=== PATIENT | female | born 1965 | race Caucasian/White ===

== ENCOUNTER → 2018-02-05 | Emergency (ER) | payer OTHER ==
[~2018-02-05] VITALS: Ht 162.6 cm; Wt 90.7 kg
== END | disposition home or self-care (01) ==
LOC: ER 17:58
DX: M54.2 Cervicalgia (principal); M62.830 Muscle spasm of back; M75.52 Bursitis of left shoulder

== ENCOUNTER 2019-01-14 00:22 | Emergency (ER) | payer OTHER ==
[~2019-01-14] VITALS: Ht 162.6 cm; Wt 89.8 kg
[2019-01-14] MEDS ORDERED: ALBUTEROL2.5 MG/3 M IH (07:15)
[2019-01-14] MEDS ORDERED: ZYNCOF 20-400120 ML PO (07:15)
[2019-01-14] MEDS ORDERED: MEDROL8 MG PO (07:18)
== END 2019-01-14 07:55 | disposition home or self-care (01) ==
LOC: ER 00:22
DX: J40 Bronchitis, not specified as acute or chronic (principal)

== ENCOUNTER → 2019-08-10 | Emergency (ER) | payer OTHER ==
[~2019-08-10] VITALS: Ht 162.6 cm; Wt 90.3 kg
[~2019-08-10] MED LIST: ALBUTEROL2.5 MG/3 M IH; MEDROL8 MG PO; SINGULAIR10 MG; XARELTO15 MG; ZYNCOF 20-400120 ML PO; ZYRTEC10 MG PO
== END | disposition home or self-care (01) ==
LOC: ER 22:50
DX: L29.8 Other pruritus (principal)

== ENCOUNTER 2019-12-31 20:32 | Emergency (ER) | payer OTHER ==
[~2019-12-31] VITALS: Ht 162.6 cm; Wt 90.7 kg
[2019-12-31] MEDS ORDERED: XARELTO20 MG PO (20:39)
== END 2019-12-31 23:23 | disposition home or self-care (01) ==
LOC: ER 20:32
DX: K52.89 Other specified noninfective gastroenteritis and colitis (principal)

== ENCOUNTER → 2020-08-29 08:40 | Outpatient (CLI) | payer OTHER ==
[~2020-08-29 08:40] MED LIST changes: +XARELTO20 MG PO
== END | disposition home or self-care (01) ==
LOC: LAB 08:40
PROVIDERS: ATTEND Orthopaedic Surgery Orthopaedic Surgery of the Spine
DX: D68.8 Other specified coagulation defects (principal); D64.89 Other specified anemias; E03.8 Other specified hypothyroidism; Z86.2 Personal history of diseases of the blood and blood-forming organs and certain disorders involving the immune mechanism

== ENCOUNTER 2020-08-29 10:01 | Outpatient (CLI) | payer OTHER | END 2020-08-29 10:16 | disposition home or self-care (01) | LOC: NUCLEAR 10:01 | PROVIDERS: ATTEND Internal Medicine Hematology & Oncology | DX: I87.2 Venous insufficiency (chronic) (peripheral) (principal); Z79.01 Long term (current) use of anticoagulants; Z86.2 Personal history of diseases of the blood and blood-forming organs and certain disorders involving the immune mechanism ==

== ENCOUNTER 2020-08-29 11:34 | Outpatient (CLI) | payer OTHER | END 2020-08-29 11:43 | disposition home or self-care (01) | LOC: RAD 11:34 | PROVIDERS: ATTEND Orthopaedic Surgery Orthopaedic Surgery of the Spine | DX: R07.89 Other chest pain (principal) ==

== ENCOUNTER → 2022-12-03 | Outpatient (CLI) | payer OTHER | END | disposition home or self-care (01) | LOC: RAD 11:50 | PROVIDERS: ATTEND Colon & Rectal Surgery | DX: K59.09 Other constipation (principal) ==

== ENCOUNTER 2022-12-05 12:28 | Emergency (ER) | payer OTHER ==
[~2022-12-05] VITALS: Ht 162.6 cm; Wt 79.4 kg
[2022-12-05] MEDS ORDERED: FOSAMAX70 MG PO (12:47)
[2022-12-05] MEDS ORDERED: MOUNJARO5 MG/0.5 M SQ (12:47)
[2022-12-05] MEDS ORDERED: XARELTO10 MG (12:48)
== END 2022-12-05 17:20 | disposition home or self-care (01) ==
LOC: ER 12:28
DX: R10.32 Left lower quadrant pain (principal); K59.00 Constipation, unspecified; K57.30 Diverticulosis of large intestine without perforation or abscess without bleeding

== ENCOUNTER → 2023-01-10 | Emergency (ER) | payer OTHER ==
[~2023-01-10] VITALS: Ht 165.1 cm; Wt 77.1 kg
[~2023-01-10] MED LIST changes: +FOSAMAX70 MG PO; +LEVSIN/SL0.125 MG SL; +MOUNJARO5 MG/0.5 M SQ; +PEPCID AC20 MG PO; +XARELTO10 MG
== END | disposition home or self-care (01) ==
LOC: ER 14:16
DX: K63.89 Other specified diseases of intestine (principal); I10 Essential (primary) hypertension; K76.0 Fatty (change of) liver, not elsewhere classified; Z88.6 Allergy status to analgesic agent

== ENCOUNTER 2023-11-27 13:00 | Inpatient (IN) | payer OTHER ==
[~2023-11-27] VITALS: Ht 160 cm; Wt 81.6 kg
[2023-11-27 15:27] LABS: HEMATOCRIT 43.7 % (36.0-45.00); HEMOGLOBIN 14.8 g/dL (12.0-15.00); MEAN CELL VOLUME 88.1 fL (80.00-100.00); MEAN CORPUSCULAR HEMOGLOBIN 29.7 pg (27.00-32.0); MEAN CORPUSCULAR HGB CONC 33.7 g/dl (32.0-36.0); PLATELET COUNT 213 K/uL (150-450); RED BLOOD COUNT 4.97 M/uL (4.00-6.00); RED CELL DISTRIBUTION WIDTH 14.2 % (11.5-14.5)
[2023-11-27 15:42] LABS: PARTIAL THROMBOPLASTIN TIME 37.4 SECONDS (22.0-34.0)
[2023-11-27 15:44] LABS: CALCIUM 9.7 mg/dL (8.5-10.1); CREATININE SERUM 0.66 mg/dL (0.55-1.02); GFR 92.31; POTASSIUM 3.84 mEq/L (3.5-5.1)
[2023-11-27 15:54] LABS: D DIMER < 0.19 MG/L
[2023-11-27 16:12] LABS: PH,URINE 7.5 (5.0-8.0); URINE APPEARANCE Clear; URINE BILIRRUBIN Negative (NEGATIVE); URINE BLOOD Negative; URINE COLOR Yellow; URINE GLUCOSE Negative (NEGATIVE); URINE LEUKOCYTE Negative; URINE NITRATE Negative; URINE PROTEIN Negative (NEGATIVE); URINE UROBILINOGEN 0.2 E.U./dl
[2023-11-27 16:15] LABS: URINE BACTERIA 23.8 uL (0.0-1933); URINE EPITHELIAL CELLS 4.4 uL (0.0-38.8); URINE WBC 2.9 uL (0.0-23.2)
[2023-11-27 16:17] LABS: URINE RBC 0.5 uL (0.0-20.8)
[2023-11-27 19:14] LABS: INR 1.14; PROTHROMBIN TIME 11.9 SECONDS (9.0-11.5)
[2023-11-28 02:23] LABS: FIBRINOGEN 357 mg/dL (187.0-446.0)
[2023-11-28 02:29] LABS: PHOSPHOKINASE CREATININE 91 U/L (26-192)
[2023-11-28 02:44] LABS: D DIMER < 0.19 MG/L
[2023-11-28 02:58] LABS: CKMB < 1.0 NG/ML (0.5-3.6)
[2023-11-28 06:10] LABS: HEMOGLOBIN 13.6 g/dL (12.0-15.00); MEAN CELL VOLUME 88.4 fL (80.00-100.00); MEAN CORPUSCULAR HEMOGLOBIN 29.3 pg (27.00-32.0); MEAN CORPUSCULAR HGB CONC 33.2 g/dl (32.0-36.0); PLATELET COUNT 192 K/uL (150-450); RED BLOOD COUNT 4.65 M/uL (4.00-6.00)
[2023-11-28 06:52] LABS: ALBUMIN 3.5 gm/dL (3.4-5.0); BILIRUBIN TOTAL 0.96 mg/dL (0.3-1.2); CREATININE SERUM 0.62 mg/dL (0.55-1.02); GFR 99.21; GLOBULINA 2.8 G/DL (2.4-3.5); PHOSPHOKINASE CREATININE 93 U/L (26-192); PHOSPHOROUS 3.6 mg/dL (2.5-4.9); POTASSIUM 3.42 mEq/L (3.5-5.1); TOTAL PROTEIN 6.3 gm/dL (6.4-8.2)
[2023-11-28 06:58] LABS: ERYTHROCYTE SEDIMENTATION RATE 10 mm/hr
[2023-11-28 07:00] LABS: C-REACTIVE PROTEIN 0.43 MG/DL (0.00-0.29); CKMB < 1.0 NG/ML (0.5-3.6)
[2023-11-29] MEDS ORDERED: ROSUVASTATIN CA10 MG (09:34)
== END 2023-11-29 17:06 | disposition home or self-care (01) | DRG 311 ==
LOC: ER 13:00 → MEDI 22:21
PROVIDERS: Nurse Practitioner Family; ADMIT Internal Medicine; ATTEND Internal Medicine
PROC: 4A12X4Z Monitoring of Cardiac Electrical Activity, External Approach (ICD-10-PCS; principal; 2023-11-27)
PROC: BB24YZZ Computerized Tomography (CT Scan) of Bilateral Lungs using Other Contrast (ICD-10-PCS; 2023-11-27)
PROC: B246ZZZ Ultrasonography of Right and Left Heart (ICD-10-PCS; 2023-11-27)
PROC: 4A02XM4 Measurement of Cardiac Total Activity, External Approach (ICD-10-PCS; 2023-11-29)
PROC: 3E073KZ Introduction of Other Diagnostic Substance into Coronary Artery, Percutaneous Approach (ICD-10-PCS; 2023-11-29)
DX: I20.0 Unstable angina (principal); D68.59 Other primary thrombophilia; R07.89 Other chest pain